=== PATIENT | male | born 1990 | race American Indian/Alaskan Native ===

== ENCOUNTER 2020-05-02 10:51 | Day surgery (SDC) | payer MEDICAID ==
[~2020-05-02 10:51] MED LIST: LACTATED RINGERS 1,000 ML IV SCH; MIDAZOLAM 10 MG/5 ML ORAL LIQD PO SCH; MIDAZOLAM 2 MG/2 ML INJ IV NR
[2020-05-02] MEDS ORDERED: ceFAZolin/STERILE WATER 2 GM/20 ML SYRINGE IV NR (11:30)
[2020-05-02] MEDS ORDERED: HYDROmorphone 1 MG/1 ML INJ IV PRN (11:42)
--- NOTE | 2020-05-02 11:53 | Anesthesia Consultation ---
Anesthesia Consult and Med Hx Date of service: 05/02/20 - Airway Anesthetic Teeth Evaluation: Good Mental/Hyoid Distance: Adequate Intubation Access Assessment: Possibly Difficult (not cooperative with airway exam. Per parents, normal dentition, ROM of neck, and jaw mobility) - Pulmonary Exam CTA: Yes - Cardiac Exam Cardiac Exam: RRR - Pre-Operative Health Status ASA Pre-Surgery Classification: ASA2 Proposed Anesthetic Plan: General - Pulmonary Hx Smoking: No Hx Respiratory Symptoms: No Hx Sleep Apnea: No (ANNITA PRE SCREEN LOW RISK) - Cardiovascular System Hx Hypertension: No Hx Heart Attack/AMI: No Hx Percutaneous Transluminal Coronary Angioplasty (PTCA): No Hx Cardia Arrhythmia: No - Central Nervous System Hx Seizures: Yes (took carbamazepine and depakote this morning) Hx Psychiatric Problems: Yes (developmental delay) - Gastrointestinal Hx Gastroesophageal Reflux Disease: No - Endocrine Hx Renal Disease: No Hx Liver Disease: No Hx Insulin Dependent Diabetes: No Hx Non-Insulin Dependent Diabetes: No Hx Thyroid Disease: No - Other Systems Hx Obesity: No - Additional Comments Anesthesia Medical History Comments: No hx anesthetic complications. Not cooperative with exam or IV placement at baseline. Will give PO versed prior to IV start.
--- NOTE | 2020-05-02 11:53 | Anesthesia Day of Surgery ---
Anesthesia Day of Surgery - Day of Surgery Patient Examined: Yes Patient H&P Reviewed: Yes Patient is NPO: Yes
[2020-05-02] MEDS ORDERED: LACTATED RINGERS 1,000 ML IV SCH (12:00)
[2020-05-02] MEDS ORDERED: fentaNYL 100 MCG/2 ML INJ ONE (12:32)
[2020-05-02] MEDS ORDERED: propofoL 200 MG/20 ML VIAL IV ONE (12:33)
[2020-05-02] MEDS ORDERED: PHENYLEPHRINE/NS 1,000 MCG/10 ML SYRINGE (OR USE) IV ONE (13:02)
[2020-05-02] MEDS ORDERED: SODIUM CHLORIDE 0.9% IRR 1,500 ML BOTTLE IR ONE (13:04)
[2020-05-02] MEDS ORDERED: ONDANSETRON 4 MG/2 ML INJ ONE (13:43)
--- NOTE | 2020-05-02 14:20 | Post Operative Note ---
Date of procedure: 05/02/20 Pre-op diagnosis: scrotal abcess Post-op diagnosis: same Findings: as above Anesthesia: GETA Surgeon: TRACI CRUZ Estimated blood loss: minimal Pathology: list (abcess) Specimen disposition: to lab Condition: stable Disposition: PACU
--- NOTE | 2020-05-02 14:21 | Discharge Summary ---
Short Stay Discharge Plan Activity: other (no straining ) Weight Bearing Status: Full Weight Bearing Diet: regular Special Instructions: other (wound care ) Follow up with: OJ ORTEGA MD [Primary Care Provider] - 7 Days TRACI CRUZ MD [Staff Physician] - 3 Days
--- NOTE | 2020-05-02 14:25 | Operative Report ---
PREOPERATIVE DIAGNOSIS: Right scrotal abscess. POSTOPERATIVE DIAGNOSIS: Right scrotal abscess. PROCEDURE: Excision of an incision and drainage of scrotal abscess. SURGEON: Dr. Tafoya. ANESTHESIA: General. FINDINGS: This is a gentleman who is severely autistic with a scrotal abscess. We could not even examine him in the office. He became combative. He now presents for treatment. There has been a constant on and off drainage. DESCRIPTION OF PROCEDURE: The patient was brought to the operating room and placed on the operating table. Following induction of anesthesia, placed in supine position, prepped and draped in usual sterile fashion. Once we examined and the testes were far away from the abscess, this was likely a sebaceous cyst that got infected. We opened it widely and excised and necrotic and inflamed skin and superficial scrotal tissue. It looks like a sebaceous cyst that got infected. Wound was irrigated. We approximated the incision with a chromic suture and placed it to drain. The patient tolerated the procedure well. No significant complications, brought to recovery in stable condition. Minimal blood loss of less than 10 mL. JOB# [id number] ROBBIN/SLIME
[2020-05-02 14:42] VITALS: BP 119/53
--- NOTE | 2020-05-02 15:02 | Post Anesthesia Evaluation ---
- Post Anesthesia Evaluation Patient Participated: No (baseline mentation) Airway Patent: Yes Stable Respiratory Function: Yes Nausea/Vomiting: No Temp > 96.8F: Yes Pain Manageable: Yes Adequeate Hydration: Yes Anesthesia Complications: No
== END 2020-05-02 10:52 | disposition home or self-care (01) ==
LOC: OR 10:51
PROVIDERS: ATTEND Urology
DX: N49.2 Inflammatory disorders of scrotum (principal); F32.9 Major depressive disorder, single episode, unspecified; F41.9 Anxiety disorder, unspecified; Z98.890 Other specified postprocedural states; Z79.899 Other long term (current) drug therapy; Z87.440 Personal history of urinary (tract) infections
CPT/HCPCS: 54700; 87075; 87116; 88304; J2370; J2405; J2704; J3010; J7120